=== PATIENT | male | born 1945 | race Asian ===

== ENCOUNTER → 2016-10-22 | Outpatient (CLI) | payer MEDICARE, BC ==
[~2016-10-22] VITALS: Ht 182.9 cm; Wt 112.0 kg
[~2016-10-22] MED LIST: CELE200 PO; LEVO175T4 PO; LIDOP TD; LINA145C PO; LISI-662 PO; META-25 PO; MOME17N NASAL; PANT40TA25 PO; TAMS0.4C32 PO; TEMA15CA PO; TEST1T TP; VITAD50000 PO
[2016-10-22 14:01] VITALS: BP 121/75
== END | disposition home or self-care (01) ==
LOC: SRCNTR 13:44
PROVIDERS: ATTEND Internal Medicine Critical Care Medicine
DX: I10 Essential (primary) hypertension (principal); J44.1 Chronic obstructive pulmonary disease with (acute) exacerbation; E03.9 Hypothyroidism, unspecified; G47.33 Obstructive sleep apnea (adult) (pediatric); E27.40 Unspecified adrenocortical insufficiency
CPT/HCPCS: G0463

== ENCOUNTER → 2016-12-02 | Outpatient (CLI) | payer MEDICARE, BC ==
[~2016-12-02] VITALS: Ht 182.9 cm; Wt 115.0 kg
[2016-12-02 11:46] VITALS: BP 133/91
== END | disposition home or self-care (01) ==
LOC: SRCNTR 11:28
PROVIDERS: ATTEND Internal Medicine Critical Care Medicine
DX: G47.33 Obstructive sleep apnea (adult) (pediatric) (principal); R76.12 Nonspecific reaction to cell mediated immunity measurement of gamma interferon antigen response without active tuberculosis; E27.40 Unspecified adrenocortical insufficiency; I10 Essential (primary) hypertension; J01.90 Acute sinusitis, unspecified; J44.1 Chronic obstructive pulmonary disease with (acute) exacerbation; E03.9 Hypothyroidism, unspecified; K21.9 Gastro-esophageal reflux disease without esophagitis; M81.0 Age-related osteoporosis without current pathological fracture; J32.8 Other chronic sinusitis
CPT/HCPCS: G0463